=== PATIENT | male | born 1980 | race Caucasian/White ===

== ENCOUNTER 2022-02-24 05:52 | Emergency (ER) | payer BC, SELFPAY ==
[2022-02-24 05:58] VITALS: BP 144/75; PULSE 107; RESP 20; TEMP 36.6; O2SAT 95
--- NOTE | 2022-02-24 06:19 | W.ED.GENAD ---
Discharge Plan Disposition Patient Disposition: Home Condition: Improving Discharge Details Clinical Impression: Laceration of face, Contusion of left shoulder ED Provider: Julio Zamora Discharge Instructions Instructions: Facial Laceration (ED) Additional Instructions: Your sutures will slowly dissolve over approximately 1 week's time. Return difficulty fever, foul-smelling discharge from the wound, or any other acute concerns. May use Tylenol as needed for discomfort. As we discussed, you declined imaging studies. Please return at anytime for reevaluation should you desire. You were given a tetanus booster today. The Steri-Strips will slowly curl and may be removed in approximately 5 to 7 days time. Medical Decision Making 41-year-old male slipped and fell on ice, landing on his left face and shoulder. He suffered a small laceration to the face and a contusion to the left shoulder. His tetanus is out of date and he was given a booster in the ER. Patient declined imaging studies. He is alert and demonstrates normal decision-making capacity. Patient was prepped and draped in standard sterile fashion, anesthetized with lidocaine, and suture repair was performed of the small laceration. Tissue adhesive was placed over the abrasion. Patient declined CT imaging of his head or x-ray of his left shoulder. He is stable, improved, appropriate for discharge to home. HPI General Mode of arrival: ambulatory. Date/Time Provider Initiated Documentation: 02/24/22 06:01. Limitations to Documentation: no limitations. Information obtained by: patient. History of Present Illness 41 year old M presents to the emergency department with the chief complaint of Fall, head and shoulder injury, described as moderate, Quality is described as dull, and is localized to the head, left and upper extremity. Patient reports no radiation. Patient started experiencing this minute(s) No relieving factors improve symptom(s), No exacerbating factors reported . Patient notes denies confusion, seizure, shortness of breath and syncope. Patient did receive the following treatments prior to arrival, none General Stated Complaint: HeadInjury CECELIA: 4 Review of Systems Narrative: 6 systems reviewed and otherwise negative. No neck/chest or back pain. [facility] All Active Problems (Updated 02/24/22 @ 06:38 by Julio Zamora MD) Laceration of face (Acute) Contusion of left shoulder (Acute) Social History Smoking/Tobacco Use Status: Never Smoking risk assessment performed?: Yes Alcohol Intake: current Alcohol Intake frequency: holidays/special occasions only Substance use type: does not use Do you feel safe at home: Yes Exam Narrative Exam Narrative: GEN: awake, alert, oriented 3. Pleasant, well groomed, interactive. HEAD: Normocephalic, left face with small 0.5 cm laceration at the lateral aspect of the left orbit. There is a superficial abrasion to the left cheek with mild swelling. No loose teeth, no facial anesthesia. ENT: Mucous membranes moist, oropharynx unremarkable, External ear exam unremarkable EYES: PERRL, EOMI NECK: Full ROM, nontender, no step-off or deformity CHEST/RESP: Nontender, clear to auscultation bilateral, no wheeze/rhonchi/rales CARDIOVASCULAR: RRR, no murmur, rub ryley. 2+ Rad pulse bilateral ABDOMEN: Soft, nontender, no mass. +Bowel sounds EXT: Full ROM, no edema, no rash, bruising left shoulder, no AC joint tenderness, full range of motion demonstrated by patient. Neuro: Grossly normal neurologic exam, conversant, interactive. Psych: Speech fluent, thoughts congruent, affect normal Course Vital Signs Vital signs: Vital Signs Temperature 36.6 C 02/24/22 05:58 Pulse 107 H 02/24/22 05:58 Respiratory Rate 20 02/24/22 05:58 Blood Pressure 144/75 H 02/24/22 05:58 Pulse Oximetry 95 02/24/22 05:58 Temperature 36.6 C 02/24/22 05:58 Temperature Source Oral 02/24/22 05:58 Pulse 107 H 02/24/22 05:58 Respiratory Rate 20 02/24/22 05:58 Respiratory Effort 02/24/22 06:11 Blood Pressure 144/75 H 02/24/22 05:58 Blood Pressure Position Sitting 02/24/22 05:58 Pulse Oximetry 95 02/24/22 05:58 Oxygen Delivery Method Room Air 02/24/22 05:58 Oxygen Flow Rate 0 02/24/22 05:58 Pain Level 0 02/24/22 05:58 Procedures Laceration Laceration 1: Site: face Side (If applicable): left Size (cm): 0.5 Description: linear Depth: simple, single layer Local Anesthetic: Lidocaine 1% Amount of anesthesia used (mL): 1.5 Pre-repair: wound explored, irrigated extensively and deep structures intact Skin layer closed with: vicryl Size (cm): 5-0 Number of sutures: 2
[2022-02-24] MEDS: Tetanus & Diphtheria Tox,ADULT 0.5 ML VIAL IM (06:38)
[2022-02-24] MEDS: Lidocaine 1% Pres-Free 5 ML VIAL (06:44)
== END 2022-02-24 06:45 | disposition home or self-care (01) ==
LOC: ER 06:50
PROVIDERS: Emergency Provider Emergency Medicine
DX: S01.81XA Laceration without foreign body of other part of head, initial encounter (principal); S40.012A Contusion of left shoulder, initial encounter; W00.0XXA Fall on same level due to ice and snow, initial encounter; Z23 Encounter for immunization
CPT/HCPCS: 12011; 90471; 99282